=== PATIENT | female | born 1965 ===

== ENCOUNTER 2017-04-07 12:26 | Day surgery (SDC) | payer OTHER ==
[~2017-04-07] VITALS: Ht 165.1 cm; Wt 61.5 kg
[~2017-04-07 12:26] MED LIST: CLIN150; HYDR1TAB94
== END 2017-04-07 15:01 | disposition home or self-care (01) ==
LOC: ORSCSDS 12:26
PROVIDERS: Internal Medicine Gastroenterology
PROC: 0DBN8ZX Excision of Sigmoid Colon, Via Natural or Artificial Opening Endoscopic, Diagnostic (ICD-10-PCS; principal; 2017-04-07 13:00)
PROC: 0DBP8ZX Excision of Rectum, Via Natural or Artificial Opening Endoscopic, Diagnostic (ICD-10-PCS; principal; 2017-04-07 13:00)
PROC: 0DBL8ZX Excision of Transverse Colon, Via Natural or Artificial Opening Endoscopic, Diagnostic (ICD-10-PCS; principal; 2017-04-07 13:00)
DX: Z12.11 Encounter for screening for malignant neoplasm of colon (principal); D12.2 Benign neoplasm of ascending colon; D12.5 Benign neoplasm of sigmoid colon; K62.1 Rectal polyp; Z87.891 Personal history of nicotine dependence
CPT/HCPCS: 88305

== ENCOUNTER → 2017-04-30 | Outpatient (CLI) | payer OTHER ==
[2017-04-30 14:18] LABS: Source, Urine Clean Catch
[2017-04-30 14:33] LABS: Bacteria Not Seen /hpf; Red Blood Cells, Urine Not Seen /hpf (0-2); Squamous Epithelial Cells Mod /hpf (Few); White Blood Cells, Urine 0-2 /hpf (0-5)
== END ==
LOC: LAB SHORT 14:16
PROVIDERS: Physician Assistant
DX: R30.0 Dysuria (principal)
CPT/HCPCS: 81015

== ENCOUNTER → 2017-11-10 | Outpatient (CLI) | payer OTHER | LOC: LAB SHORT 07:55 → LAB EV 07:55 | DX: L03.116 Cellulitis of left lower limb (principal) | CPT/HCPCS: 87070; 87075; 87205 ==

== ENCOUNTER → 2020-10-18 | Outpatient (CLI) | payer OTHER ==
[2020-11-01 20:11] LABS: BRUSHITE 0.67 ratio (0.00-3.00); CALCIUM OXALATE 2.46 ratio (0.00-6.00); CALCIUM, URINE 12.1 mg/dL (Not Estab.); CALCIUM, URINE 326.7 mg/24 hr (100.0-300.0); CHLORIDE URINE 146 (110-250); CITRIC ACID (CITRATE) 204 mg/L (Not Estab.); CITRIC ACID(CITRATE) 551 mg/24 hr (320-1240); CREATININE, URINE 36.3 mg/dL (Not Estab.); CREATININE, URINE 980.1 mg/24 hr (800.0-1800.0); MAGNESIUM, URINE 3.3 mg/dL (Not Estab.); MONOSODIUM URATE 0.75 ratio (0.00-4.00); OSMOLALITY, URINE 271 (300-900); SODIUM, URINE 154 (39-258); SODIUM, URINE 57 mmol/L (Not Estab.); STRUVITE 0.01 ratio (0.00-1.00); URIC ACID 0.81 ratio (0.00-1.20); URINE VOLUME 2700 mL/24 hr (600-1600); URINE VOLUME (PRESERVATIVE) 2700 mL/24 hr (600-1600)
== END | disposition home or self-care (01) ==
LOC: LAB 06:30 → LAB SHORT 06:30 → LAB FUT 09-26 14:45
PROVIDERS: Urology
DX: N20.0 Calculus of kidney (principal)
CPT/HCPCS: 81003; 81050; 82131; 82140; 82340; 82436; 82507; 82570; 83735; 83935; 83945; 84105; 84133; 84300; 84392; 84560

== ENCOUNTER → 2021-03-20 | Outpatient (CLI) | payer OTHER ==
[2021-03-28 14:11] LABS: BRUSHITE 0.26 ratio (0.00-3.00); CALCIUM OXALATE 1.98 ratio (0.00-6.00); CALCIUM, URINE 138.6 mg/24 hr (0.0-320.0); CALCIUM, URINE 6.3 mg/dL (Not Estab.); CHLORIDE URINE 70 (38-210); CITRIC ACID (CITRATE) 258 mg/L (Not Estab.); CITRIC ACID(CITRATE) 568 mg/24 hr (320-1240); CREATININE, URINE 43.8 mg/dL (Not Estab.); CREATININE, URINE 963.6 mg/24 hr (800.0-1800.0); MAGNESIUM, URINE 1.7 mg/dL (Not Estab.); MONOSODIUM URATE 0.53 ratio (0.00-4.00); OSMOLALITY, URINE 233 (300-900); SODIUM, URINE 38 mmol/L (Not Estab.); SODIUM, URINE 84 (39-258); STRUVITE 0.01 ratio (0.00-1.00); URIC ACID 0.85 ratio (0.00-1.20); URINE VOLUME 2200 mL/24 hr (600-1600); URINE VOLUME (PRESERVATIVE) 2200 mL/24 hr (600-1600)
== END | disposition home or self-care (01) ==
LOC: LAB SHORT 07:45 → LAB FUT 12-17 08:50
PROVIDERS: Urology
DX: N20.0 Calculus of kidney (principal)
CPT/HCPCS: 81003; 82131; 82140; 82340; 82436; 82507; 82570; 83735; 83935; 83945; 84105; 84133; 84300; 84392; 84560